=== PATIENT | male | born 1940 | race Caucasian/White ===

== ENCOUNTER 2017-04-12 07:30 | Day surgery (SDC) | payer MEDICARE, BC ==
[~2017-04-12] VITALS: Ht 167.6 cm; Wt 106.6 kg
[~2017-04-12 07:30] MED LIST: ADLT ASA LOW81 MG PO; BREO ELLIPTA 101 INH; CIALIS2.5 MG PO; DIOVAN160 MG PO; FINASTERIDE5 MG PO; GLIMEPIRIDE2 MG PO; MAXZIDE-25MG1 COMBO PO; METFORMIN500 MG PO; MULTIVITAMI1 PO; OMEPRAZOLE20 M2 PO; PRAVACHOL10 MG PO; PRILOSEC40 MG PO; PROCARDIA XL60 MG PO; QUINAPRIL20 MG PO; TYLENOL PM PO
[2017-04-12 10:22] VITALS: BP 166/86
== END 2017-04-12 10:40 | disposition home or self-care (01) ==
LOC: ENDO 07:30
PROVIDERS: ATTEND Internal Medicine Gastroenterology
PROC: 0DBP8ZX Excision of Rectum, Via Natural or Artificial Opening Endoscopic, Diagnostic (ICD-10-PCS; principal; 2017-04-12)
DX: Z12.11 Encounter for screening for malignant neoplasm of colon (principal); D12.8 Benign neoplasm of rectum; K64.4 Residual hemorrhoidal skin tags; K57.30 Diverticulosis of large intestine without perforation or abscess without bleeding; K64.8 Other hemorrhoids; I10 Essential (primary) hypertension; E11.9 Type 2 diabetes mellitus without complications; E78.00 Pure hypercholesterolemia, unspecified; J44.9 Chronic obstructive pulmonary disease, unspecified; Z86.010 Personal history of colon polyps

== ENCOUNTER 2017-05-17 08:10 | Day surgery (SDC) | payer MEDICARE, BC ==
[~2017-05-17] VITALS: Ht 167.6 cm; Wt 83.9 kg
[2017-05-17 10:19] VITALS: BP 108/54
== END 2017-05-17 10:45 | disposition home or self-care (01) ==
LOC: ENDO 08:10 → ORM 09:45 → ENDO 10:45 → ORM 14:10
PROVIDERS: ATTEND Internal Medicine Gastroenterology
PROC: 0DB48ZX Excision of Esophagogastric Junction, Via Natural or Artificial Opening Endoscopic, Diagnostic (ICD-10-PCS; principal; 2017-05-17)
DX: K21.9 Gastro-esophageal reflux disease without esophagitis (principal); K29.50 Unspecified chronic gastritis without bleeding; K31.89 Other diseases of stomach and duodenum; F17.200 Nicotine dependence, unspecified, uncomplicated; K57.30 Diverticulosis of large intestine without perforation or abscess without bleeding; K64.8 Other hemorrhoids; I10 Essential (primary) hypertension; E11.9 Type 2 diabetes mellitus without complications; J44.9 Chronic obstructive pulmonary disease, unspecified; E78.00 Pure hypercholesterolemia, unspecified; Z86.010 Personal history of colon polyps; Z79.899 Other long term (current) drug therapy

== ENCOUNTER 2017-08-22 10:00 | Inpatient (IN) | payer MEDICARE, BC ==
[~2017-08-22] VITALS: Ht 167.6 cm; Wt 83.9 kg
[2017-08-22] MEDS ORDERED: TAMSULOSIN HCL0.4 MG PO (11:40)
[2017-08-26] VITALS (8 sets, daily range): BP systolic 133–155; BP diastolic 55–90
--- NOTE | 2017-08-26 16:16 | NUR ---
PT ARRIVES TO FLOOR WITH OR TEAM, ALERT AND ORIENTED X 3. DRESSING AND ICE PACK TO LEFT SHOULDER. VSS. MEDS GIVEN FOR PAIN RELIEF NEEDED. SLING IN PLACE TO LEFT ARM.
--- NOTE | 2017-08-26 19:30 | NUR ---
PATIENT RESTING IN BED WITH S/O VISITING AT BEDSIDE. PATIENT AWAKE ALERT AND ORIENTEDX3. LEFT ARM IN SLING WITH DRESSING TO LEFT SHOULDER CDI. SOME SWELLING NOTED TO LEFT SHOULDER AREA-USING ICE PACK TO AFFECTED AREA. CMS TO LEFT FINGERS WNL. IV SITE TO RIGHT HAND INTACT WITH IVF LR PATENT AND INFUSING AT 100CC/HR. SITE APPEARS HEALTHY AT THIS TIME. PATIENT TAKING PO FLUIDS AND DIET-TOLERATING WELL. LUNGS CLEAR BUT DECREASED ON LEFT. ABD SOFT WITH BS+. VOIDING QS YELLOW URINE IN URINAL. SCD'S IN PLACE. ENCOURAGED USE OF IS Q1H WHILE AWAKE. ENCOURAGED CDB EXERCISES. SAFETY PRECAUTIONS REINFORCED. CALL LIGHT IN REACH. WILL CONT TO MONITOR.
--- NOTE | 2017-08-26 21:30 | NUR ---
PATIENT RESTING IN BED-MEDICATED FOR POST-OP PAIN TO LEFT SHOULDER WITH PERCOCET 10/325MG TABLETS 2. CALL LIGHT IN REACH. WILL CONT TO MONITOR.
[2017-08-27 00:27] VITALS: BP 176/89
--- NOTE | 2017-08-27 01:55 | NUR ---
PATIENT RESTING IN BED-C/O LEFT SHOULDER POST-OP PAIN-MEDICATED WITH PERCOCET TABS 2 FOR PAIN. PROVIDED WITH ICE PACK TO THE AFFECTED AREA. LEFT ARM REMAINS IN SLING. CMS TO FINGERS WNL. SAFETY PRECAUTIONS REINFORCED. CALL LIGHT IN REACH. WILL CONT TO MONITOR.
--- NOTE | 2017-08-27 04:36 | NUR ---
IV SITE TO RIGHT HAND INFILTRATED-SITE D/C'ED-NEW IV SITE STARTED TO RIGHT FOREARM-#22 GAUGE WITH GOOD BLOOD RETURN. ENCOURAGED PO FLUIDS. CALL LIGHT IN REACH. WILL CONT TO MONITOR.
[2017-08-27 04:46] VITALS: BP 168/72; BP 188/72
[2017-08-27 05:31] LABS: HEMOGLOBIN 12.3 g/dl (14.0-18.0); MEAN CELL VOLUME 94.1 fL CALC (80.0-100.0); MEAN CORPUSCULAR HGB 31.3 pG CALC (26.0-32.0); MEAN CORPUSCULAR HGB CONC 33.2 g/L CALC (32.0-36.0); RED BLOOD COUNT 3.93 mill/uL (4.70-6.10); RED CELL DISTRI WIDTH 12.9 % (11.5-15.5)
[2017-08-27 05:50] LABS: ANION GAP 15 (6-22 (CALC)); BUN 12 mg/dL (8-23); BUN/CREATININE RATIO 15 (12-20 (CALC)); CARBON DIOXIDE 25 mmol/l (22-30); CHLORIDE 105 mmol/l (95-108); CREATININE 0.8 mg/dL (0.7-1.3); GFR > 60 ML/MIN (>=60 (CALC)); GFR FOR AFR.AMER. > 60 ML/MIN (>=60 (CALC)); POTASSIUM 4.4 mmol/l (3.5-5.1); SODIUM 140 mmol/l (137-146)
--- NOTE | 2017-08-27 07:00 | NUR ---
RECEIVED BEDSIDE REPORT FROM KELLY LOZANO. SITTING IN EDGE OF BED. LEFT ARM IN SLING, DRESSING TO LEFT SHOULDER CDI, CMS TO LEFT FINGERS WNL. RESPS EVEN AND UNLABORED ON ROOM AIR. #22 RFA INFUSING WITHOUT DIFFICULTY, SITE APPEARS HEALTHY. SCDS TO BILAT LOWER EXTREMITIES. VOICES NO NEEDS AT THIS TIME. PLAN OF CARE DISCUSSED. SAFETY PRECAUTIONS REINFORCED. BED IN LOWEST POSITION WITH WHEELS LOCKED. CALL LIGHT WITHIN REACH. ENCOURAGED PT TO CALL FOR ANY NEEDS.
[2017-08-27 07:35] VITALS: BP 183/85
[2017-08-27 08:03] VITALS: BP 168/72
--- NOTE | 2017-08-27 12:20 | NUR ---
SITTING IN BEDSIDE CHAIR. LEFT ARM IN SLING, DRESSING TO LEFT SHOULDER CDI. CMS TO LEFT FINGERS WNL. VOICES NO NEEDS AT THIS TIME. DR CURTIS AT BEDSIDE, NEW ORDERS RECEIVED. CALL LIGHT WITHIN REACH. WILL CONTINUE TO MONITOR.
[2017-08-27] MEDS ORDERED: PERCOCET 10/31 COMBO PO (13:13)
--- NOTE | 2017-08-27 14:03 | NUR ---
IV site discontinued, cath intact. No edema , no redness, voices no discomfort.
--- NOTE | 2017-08-27 14:22 | NUR ---
Discharge instructions given. Patient verbalizes understanding of same. Discharged in stable condition via Wheelchair to Home with spouse. All belongings sent with pt.
== END 2017-08-27 14:21 | disposition home health service (06) | DRG 483 ==
LOC: MS2 08-26 05:47
PROVIDERS: Internal Medicine; ADMIT Orthopaedic Surgery; ATTEND Orthopaedic Surgery
PROC: 0RRK00Z Replacement of Left Shoulder Joint with Reverse Ball and Socket Synthetic Substitute, Open Approach (ICD-10-PCS; principal; 2017-08-26)
PROC: 0LS40ZZ Reposition Left Upper Arm Tendon, Open Approach (ICD-10-PCS; 2017-08-26)
DX: M19.012 Primary osteoarthritis, left shoulder (principal); M75.112 Incomplete rotator cuff tear or rupture of left shoulder, not specified as traumatic; S46.212A Strain of muscle, fascia and tendon of other parts of biceps, left arm, initial encounter; E11.9 Type 2 diabetes mellitus without complications; F17.210 Nicotine dependence, cigarettes, uncomplicated; M16.12 Unilateral primary osteoarthritis, left hip; J44.9 Chronic obstructive pulmonary disease, unspecified; E78.5 Hyperlipidemia, unspecified; I10 Essential (primary) hypertension; X58.XXXA Exposure to other specified factors, initial encounter

== ENCOUNTER 2017-08-29 20:35 | Emergency (ER) | payer MEDICARE, BC ==
[~2017-08-29] VITALS: Ht 167.6 cm; Wt 84.1 kg
[~2017-08-29 20:35] MED LIST changes: +PERCOCET 10/31 COMBO PO; +TAMSULOSIN HCL0.4 MG PO
[2017-08-29 21:26] LABS: ALKALINE PHOSPHATASE 56 u/l (38-126); ANION GAP 13 (6-22 (CALC)); BILIRUBIN, TOTAL 0.5 mg/dL (0.0-1.4); BUN 21 mg/dL (8-23); BUN/CREATININE RATIO 27 (12-20 (CALC)); CARBON DIOXIDE 27 mmol/l (22-30); CHLORIDE 106 mmol/l (95-108); CREATININE 0.8 mg/dL (0.7-1.3); GFR > 60 ML/MIN (>=60 (CALC)); GFR FOR AFR.AMER. > 60 ML/MIN (>=60 (CALC)); POTASSIUM 3.9 mmol/l (3.5-5.1); SGOT/AST 19 u/l (19-48); SGPT/ALT 23 u/l (11-66); SODIUM 142 mmol/l (137-146)
[2017-08-29 21:27] LABS: ALBUMIN 3.1 g/dL (3.2-5.0); TOTAL PROTEIN 5.7 g/dL (6.3-8.2)
[2017-08-29 21:42] LABS: HEMATOCRIT 33.8 % (39.0-50.0); HEMOGLOBIN 11.1 g/dl (14.0-18.0); IMMATURE GRANULOCYTES 0.4 % (0.0-5.0); MEAN CELL VOLUME 94.2 fL CALC (80.0-100.0); MEAN CORPUSCULAR HGB 30.9 pG CALC (26.0-32.0); MEAN CORPUSCULAR HGB CONC 32.8 g/L CALC (32.0-36.0); NEUT# 4.16 thou/uL (1.82-7.42); RED BLOOD COUNT 3.59 mill/uL (4.70-6.10)
--- NOTE | 2017-08-29 21:43 | NUR ---
BREATHING TREATMENT GIVEN USING MOUTH PEICE. BREATHING TECH. FOR GOOD DEPOSITION TO THE LUNGS.
[2017-08-29] MEDS ORDERED: DOXYCYCL HYC100 MG PO (22:06)
[2017-08-29] MEDS ORDERED: PREDNISONE10 MG PO (22:06)
[2017-08-29 22:23] VITALS: BP 167/79
== END 2017-08-29 22:40 | disposition home or self-care (01) ==
LOC: ED 20:35
PROVIDERS: Family Medicine
DX: J44.1 Chronic obstructive pulmonary disease with (acute) exacerbation (principal); J20.9 Acute bronchitis, unspecified; J44.0 Chronic obstructive pulmonary disease with (acute) lower respiratory infection; K59.00 Constipation, unspecified; I10 Essential (primary) hypertension; E11.9 Type 2 diabetes mellitus without complications; E78.00 Pure hypercholesterolemia, unspecified

== ENCOUNTER 2017-11-22 14:00 | Outpatient (RCR) | payer MEDICARE, BC ==
[~2017-11-22 14:00] MED LIST changes: +DOXYCYCL HYC100 MG PO; +PREDNISONE10 MG PO
== END 2017-11-22 15:00 | disposition home or self-care (01) ==
LOC: PT 14:00
PROVIDERS: ATTEND Orthopaedic Surgery
DX: Z47.1 Aftercare following joint replacement surgery (principal); Z96.612 Presence of left artificial shoulder joint

== ENCOUNTER 2018-07-30 22:48 | Inpatient (IN) | payer MEDICARE, BC ==
[~2018-07-30] VITALS: Ht 167.6 cm; Wt 88.0 kg
[2018-07-30 23:08] LABS: HEMATOCRIT 38.9 % (39.0-50.0); IMMATURE GRANULOCYTES 0.5 % (0.0-5.0); MEAN CELL VOLUME 92.6 fL CALC (80.0-100.0); MEAN CORPUSCULAR HGB 28.6 pG CALC (26.0-32.0); MEAN CORPUSCULAR HGB CONC 30.8 g/L CALC (32.0-36.0); NEUT# 8.98 thou/uL (1.82-7.42); RED BLOOD COUNT 4.2 mill/uL (4.70-6.10); RED CELL DISTRI WIDTH 14.4 % (11.5-15.5)
[2018-07-30 23:27] LABS: ACT PARTIAL THROMBO TIME 24.7 SECONDS (20.0-32.5); D-DIMER 1.61 mg/L (0.19-0.60); PROTHROMBIN TIME 10.8 SECONDS (9.0-12.5)
[2018-07-30 23:28] LABS: ALKALINE PHOSPHATASE 73 u/l (38-126); ANION GAP 18 (6-22 (CALC)); BILIRUBIN, TOTAL 0.5 mg/dL (0.0-1.4); BUN 22 mg/dL (8-23); BUN/CREATININE RATIO 21 (12-20 (CALC)); CARBON DIOXIDE 25 mmol/l (22-30); CHLORIDE 106 mmol/l (95-108); CREATININE 1.1 mg/dL (0.7-1.3); GFR > 60 ML/MIN (>=60 (CALC)); GFR FOR AFR.AMER. > 60 ML/MIN (>=60 (CALC)); MAGNESIUM 1.5 mg/dL (1.6-2.3); POTASSIUM 4.3 mmol/l (3.5-5.1); SGOT/AST 25 u/l (19-48); SODIUM 145 mmol/l (137-146); TOTAL PROTEIN 6.6 g/dL (6.3-8.2)
[2018-07-30 23:33] LABS: ALBUMIN 3.8 g/dL (3.2-5.0)
[2018-07-30 23:40] LABS: MYOGLOBIN 53 ng/mL (0 - 121)
[2018-07-30 23:59] LABS: TSH, 3RD GENERATION 1.48 uIU/mL (0.47 - 4.68)
[2018-07-31] VITALS (56 sets, daily range): BP systolic 47–181; BP diastolic 35–95
[2018-07-31 07:23] LABS: ANION GAP 19 (6-22 (CALC)); BUN 23 mg/dL (8-23); BUN/CREATININE RATIO 18 (12-20 (CALC)); CARBON DIOXIDE 20 mmol/l (22-30); CHLORIDE 110 mmol/l (95-108); CREATININE 1.3 mg/dL (0.7-1.3); GFR 54 ML/MIN (>=60 (CALC)); GFR FOR AFR.AMER. > 60 ML/MIN (>=60 (CALC)); POTASSIUM 4.5 mmol/l (3.5-5.1); SODIUM 146 mmol/l (137-146)
[2018-07-31 11:35] LABS: HEMATOCRIT 36.4 % (39.0-50.0); HEMOGLOBIN 10.9 g/dl (14.0-18.0); IMMATURE GRANULOCYTES 1.7 % (0.0-5.0); MEAN CELL VOLUME 95.5 fL CALC (80.0-100.0); MEAN CORPUSCULAR HGB 28.6 pG CALC (26.0-32.0); MEAN CORPUSCULAR HGB CONC 29.9 g/L CALC (32.0-36.0); NEUT# 12.26 thou/uL (1.82-7.42); RED BLOOD COUNT 3.81 mill/uL (4.70-6.10); RED CELL DISTRI WIDTH 14.6 % (11.5-15.5)
[2018-08-01] VITALS (29 sets, daily range): BP systolic 84–180; BP diastolic 54–114
[2018-08-01 05:18] LABS: HEMATOCRIT 39.4 % (39.0-50.0); HEMOGLOBIN 11.6 g/dl (14.0-18.0); IMMATURE GRANULOCYTES 2.2 % (0.0-5.0); MEAN CORPUSCULAR HGB 28.6 pG CALC (26.0-32.0); MEAN CORPUSCULAR HGB CONC 29.4 g/L CALC (32.0-36.0); NEUT# 10.79 thou/uL (1.82-7.42); RED BLOOD COUNT 4.06 mill/uL (4.70-6.10); RED CELL DISTRI WIDTH 14.4 % (11.5-15.5)
[2018-08-01 05:35] LABS: ALBUMIN 3.7 g/dL (3.2-5.0); ALKALINE PHOSPHATASE 73 u/l (38-126); AMYLASE 34 u/l (30-110); BUN 31 mg/dL (8-23); BUN/CREATININE RATIO 27 (12-20 (CALC)); CHLORIDE 111 mmol/l (95-108); CREATININE 1.2 mg/dL (0.7-1.3); GFR 59 ML/MIN (>=60 (CALC)); GFR FOR AFR.AMER. > 60 ML/MIN (>=60 (CALC)); LIPASE 18 u/l (23-300); POTASSIUM 4.8 mmol/l (3.5-5.1); SODIUM 147 mmol/l (137-146); TOTAL PROTEIN 6.5 g/dL (6.3-8.2)
[2018-08-01 05:38] LABS: ANION GAP 15 (6-22 (CALC)); BILIRUBIN, TOTAL 0.2 mg/dL (0.0-1.4); CARBON DIOXIDE 26 mmol/l (22-30); MAGNESIUM 2.2 mg/dL (1.6-2.3); SGOT/AST 71 u/l (19-48)
== END 2018-08-01 15:20 | DRG 208 ==
LOC: ED 22:48 → ED-I 07-31 02:00 → ED 07-31 02:25 → ICU 07-31 02:26
PROVIDERS: Family Medicine; Internal Medicine Nephrology; ADMIT Internal Medicine; ATTEND Internal Medicine
PROC: 02HV33Z Insertion of Infusion Device into Superior Vena Cava, Percutaneous Approach (ICD-10-PCS; principal; 2018-07-31)
PROC: 0T9B70Z Drainage of Bladder with Drainage Device, Via Natural or Artificial Opening (ICD-10-PCS; 2018-07-31)
PROC: 5A1935Z Respiratory Ventilation, Less than 24 Consecutive Hours (ICD-10-PCS; 2018-08-01)
PROC: 0BH17EZ Insertion of Endotracheal Airway into Trachea, Via Natural or Artificial Opening (ICD-10-PCS; 2018-08-01)
PROC: 5A09357 Assistance with Respiratory Ventilation, Less than 24 Consecutive Hours, Continuous Positive Airway Pressure (ICD-10-PCS; 2018-08-01)
DX: J44.0 Chronic obstructive pulmonary disease with (acute) lower respiratory infection (principal); J18.9 Pneumonia, unspecified organism; J80 Acute respiratory distress syndrome; I48.92 Unspecified atrial flutter; N17.9 Acute kidney failure, unspecified; E87.2 Acidosis; J44.1 Chronic obstructive pulmonary disease with (acute) exacerbation; I10 Essential (primary) hypertension; I95.9 Hypotension, unspecified; F17.200 Nicotine dependence, unspecified, uncomplicated; E78.5 Hyperlipidemia, unspecified; N40.0 Benign prostatic hyperplasia without lower urinary tract symptoms; M19.90 Unspecified osteoarthritis, unspecified site; K21.9 Gastro-esophageal reflux disease without esophagitis; J84.10 Pulmonary fibrosis, unspecified; I48.0 Paroxysmal atrial fibrillation; G47.33 Obstructive sleep apnea (adult) (pediatric); F51.04 Psychophysiologic insomnia; E11.51 Type 2 diabetes mellitus with diabetic peripheral angiopathy without gangrene; Z91.19 Patient's noncompliance with other medical treatment and regimen; Z96.641 Presence of right artificial hip joint; Z79.84 Long term (current) use of oral hypoglycemic drugs; Z86.011 Personal history of benign neoplasm of the brain
CPT/HCPCS: J1160; J1650; J3475

== ENCOUNTER 2018-08-29 11:03 | Inpatient (IN) | payer MEDICARE, BC ==
[~2018-08-29] VITALS: Ht 167.6 cm; Wt 85.9 kg
[2018-08-29] VITALS (22 sets, daily range): BP systolic 83–152; BP diastolic 39–78
--- NOTE | 2018-08-29 11:16 | NUR ---
PATIENT TO ROOM VIA WHEELCHAIR AND PHYSICIAN AT BEDSIDE FOR EVAL
[2018-08-29 11:37] LABS: HEMATOCRIT 35.4 % (39.0-50.0); HEMOGLOBIN 10.7 g/dl (14.0-18.0); IMMATURE GRANULOCYTES 0.9 % (0.0-5.0); MEAN CELL VOLUME 93.7 fL CALC (80.0-100.0); MEAN CORPUSCULAR HGB 28.3 pG CALC (26.0-32.0); MEAN CORPUSCULAR HGB CONC 30.2 g/L CALC (32.0-36.0); NEUT# 6.78 thou/uL (1.82-7.42); RED BLOOD COUNT 3.78 mill/uL (4.70-6.10); RED CELL DISTRI WIDTH 15.2 % (11.5-15.5)
--- NOTE | 2018-08-29 11:49 | NUR ---
CARDIZEM 20MG IVP GIVEN ORDERED. A-FIB WITH HR OF 142. B/P 147/90. LASIX IV PUSH ALSO GIVEN AT THIS TIME. URINAL PROVIDED.
[2018-08-29 11:56] LABS: ALBUMIN 3.5 g/dL (3.2-5.0); ALKALINE PHOSPHATASE 67 u/l (38-126); ANION GAP 17 (6-22 (CALC)); BUN 19 mg/dL (8-23); BUN/CREATININE RATIO 21 (12-20 (CALC)); CARBON DIOXIDE 30 mmol/l (22-30); CHLORIDE 102 mmol/l (95-108); CREATININE 0.9 mg/dL (0.7-1.3); GFR > 60 ML/MIN (>=60 (CALC)); GFR FOR AFR.AMER. > 60 ML/MIN (>=60 (CALC)); POTASSIUM 4.6 mmol/l (3.5-5.1); SGOT/AST 21 u/l (19-48); SODIUM 144 mmol/l (137-146); TOTAL PROTEIN 6.6 g/dL (6.3-8.2)
[2018-08-29 11:59] LABS: BILIRUBIN, TOTAL 0.4 mg/dL (0.0-1.4)
[2018-08-29 12:08] LABS: MYOGLOBIN 36 ng/mL (0 - 121)
--- NOTE | 2018-08-29 12:19 | NUR ---
PT TO US VIA STRETCHER. NOTIFIED DR IAN LEWIS PUSH WAS GIVEN, HR REMAINS 120'S PT DENIES SHORTNESS OF BREATH. PHARMACY TO BRING CARDIZEM GTT.
[2018-08-29] MEDS ORDERED: AMIODARONE200 MG PO (12:20)
[2018-08-29] MEDS ORDERED: LIPITOR20 M1 PO (12:24)
[2018-08-29] MEDS ORDERED: PLAVIX75 MG PO (12:26)
[2018-08-29] MEDS ORDERED: DILTIAZEM HCL360 M3 (12:29)
[2018-08-29] MEDS ORDERED: LASIX 40 MG TAB40 MG PO (12:31)
[2018-08-29] MEDS ORDERED: METOPROL TAR25 M1 PO (12:33)
[2018-08-29] MEDS ORDERED: POTASSIUM CHLO20 ME2 PO (12:36)
--- NOTE | 2018-08-29 13:16 | NUR ---
PT RETURNED FROM CT/US. SECOND SITE STARTED CARDIZEM GTT INITATED AT 5MG/HR B/P 129/80 HR 118, AFIB. PT REQUESTING LUNCH, TRAY ORDERED.
--- NOTE | 2018-08-29 13:17 | NUR ---
PT VOIDED 450ML OF CLEAR YELLOW URINE.
[2018-08-29 13:38] LABS: URINE BILIRUBIN - DIPSTICK NEGATIVE (NEGATIVE); URINE BLOOD DIPSTICK NEGATIVE (NEGATIVE); URINE COLOR YELLOW; URINE GLUCOSE - DIPSTICK NEGATIVE (NEGATIVE); URINE KETONE NEGATIVE (NEGATIVE); URINE LEUK ESTERASE NEGATIVE (NEGATIVE); URINE NITRITE - DIPSTICK NEGATIVE (Negative); URINE PH 6.5 (4.5-8.0); URINE PROTEIN - DIPSTICK NEGATIVE (NEG-TRACE); URINE SPECIFIC GRAVITY <=1.005; URINE UROBILINOGEN - DIPSTICK 0.2 E.U./dL (0.2)
--- NOTE | 2018-08-29 13:55 | NUR ---
PT WITH ADDITIONAL 450 ML OF CLEAR YELLOW URINE OUT.
--- NOTE | 2018-08-29 14:00 | NUR ---
PT TO XRAY VIA STRETCHER WITH BREAD ICER IN PLACE. ACCOMPANIED BY MYSELF. CARDIZEM GTT INFUSING AT 5MG/HR.
--- NOTE | 2018-08-29 14:17 | NUR ---
PT RETURNED FROM XRAY, UNABLE TO COMPLETE THROACENTESIS R/T TAKING PLAVIX THIS AM.
--- NOTE | 2018-08-29 14:20 | NUR ---
LUNCH TRAY PROVIDED.
--- NOTE | 2018-08-29 14:28 | NUR ---
DR SOSA AT BEDSIDE TO DISCUSS ADMISSION.
--- NOTE | 2018-08-29 14:42 | NUR ---
ED VLADIMIR Varela notified by development writer that Patient met observational status.
--- NOTE | 2018-08-29 15:09 | NUR ---
REPORT GIVEN TO MARTA EDMOND. NO QUESTIONS OFFERED AT THIS TIME.
--- NOTE | 2018-08-29 15:21 | NUR ---
male pt received to ICU bd 4 via stretcher accompanied by Yady Singh RN in stable condition; ambulatory to bed with steady gait; admission assessment completed at this time; pt alert and oriented; denies pain; denies n/v/sob; pt admits to being sent to ER by Dr hernandez; resp even and unlabored; slightly sob on exertion; lungs clear upper anterior with crackles noted to bilat bases; skin color wnl; o2 per nc at 2L; hr irreg; strong pulses; 2+ edema noted to ble; afib on monitor; abd soft with bs present; pt admits to bm 08/29/18; admits to voiding without complication; urinal at bedside; I7Os explained; #22 flushed and patent to rfa; #20 to rh patent with cardizem gtt infusing at 5mg/hr and ns at kvo; stage I noted to inner left lower buttock; pic obtained; plan of care/ meds explained; code status reviewed with pt; pt agree to DNR; pt encouraged to use call light; will continue to monitor
--- NOTE | 2018-08-29 15:37 | NUR ---
PT TRANSPORTED IN STABLE CONDITION TO ICU BED 4, RECEIVING NURSE AT BEDSIDE TO ACCEPT PATIENT.
--- NOTE | 2018-08-29 15:54 | NUR ---
Pharmacy called to consult patient on home medications. Went to speak to patient. Pt states they only want to go over their home medications when their is with him. Pt states that should arrive tomorrow on 08/30/2018 but, does not have an exact time. Told patient to call pharmacy if they have any questions. Pt states no questions but, wants to wait until his is there.
--- NOTE | 2018-08-29 16:05 | NUR ---
awake in bed; fan provided; pharmacy innovation assistant present at bedside; pt wishes to wait for in regards to reviewing home medications; afib on monitor; cardizem gtt continues at 5mg/hr; will continue to monitor
--- NOTE | 2018-08-29 18:57 | NUR ---
BEDSIDE REPORT RECEIVED FROM MARTA EDMOND. PT ASLEEP ON RIGHT SIDE WITH NO SIGNS OF DISTRESS AND OXYGEN IN PLACE VIA NC.
--- NOTE | 2018-08-29 19:06 | NUR ---
BLOOD PRESSURE NOW 83/39 WITH A F/U MANUAL OF 89/55. HEART RATE REMAINS IN THE 100S-120S. PT PLACED IN [place] POSITION AND CARDIZEM DRIP TITRATED FROM 5 TO 2.5MG/HR. PT AWAKENED FROM SLEEP; DROWSY AND ORIENTED. DENIES PAIN. RESPIRATIONS EVEN AND UNLABORED; OXYGEN SATURATIONS 87-89% ON 3L OF OXYGEN VIA NC WHILE ASLEEP.
--- NOTE | 2018-08-29 19:25 | NUR ---
CARDIZEM DRIP DISCONTIUED.
--- NOTE | 2018-08-29 19:35 | NUR ---
DR. DALE NOTIFIED OF BLOOD PRESSURES AND DRIP TITRATION. NEW ORDERS RECEIVED.
--- NOTE | 2018-08-29 19:46 | NUR ---
PT SITTING UP ON EDGE OF BED; ALERT AND ORIENTED. BLOOD PRESSURE UP TO 152/77. RESPIRATIONS EVEN AND UNLABORED; OXYGEN SATURATION NOW 93%. PT UPDATED ON CHANGES IN MEDICATION INCLUDING NEW ORDER FOR XARELTO. QUESTIONS ANSWERED TO SATISFACTION.
--- NOTE | 2018-08-29 20:19 | NUR ---
ALL HS MEDICATIONS ADMINISTERED INCLUIDNG XARELTO, AMIODARONE, CARDIZEM, AND METORPOLOL; VS STABLE; WILL CONTINUE TO CLOSELY MONITOR BLOOD PRESSURE. HEART RATE CURRENTLY 110S-120S. ACCU CHECK 208, 2 UNITS GIVEN AND SNACK PROVIDED. PT HAS NO OTHER REQUESTS OR CONCERNS AT THIS TIME. IV SITES APPEAR HEALTHY.
--- NOTE | 2018-08-29 21:12 | NUR ---
SONATA ADMINISTERED AT THIS TIME PER PT REQUEST.
[2018-08-30] VITALS (37 sets, daily range): BP systolic 76–140; BP diastolic 44–96
--- NOTE | 2018-08-30 00:30 | NUR ---
LAB AT BEDSIDE. ZOSYN INFUSING; IV SITE APPEARS HEALTHY.
--- NOTE | 2018-08-30 02:27 | NUR ---
SBP TEMPORARILY IN THE 70'S. PT PLACED IN [place]; BP CURRENTLY 115/84. WILL CONTINUE TO MONITOR.
--- NOTE | 2018-08-30 04:39 | NUR ---
PT ASLEEP AT THIS TIME WITH NO SIGNS OF DISTRESS. RESPIRATIONS EVEN AND UNLABORED ON OXYGEN; SATURTIONS 90-94% ON 3L. BLOOD PRESSURE REMAINS UNSTABLE; CURRENTLY 87/62. AFIB ON TELEMETRY WITH HEART RATE IN THE 110'S-130'S; PT ASYMPTOMATIC CLINICALLY. PERIODICALLY SITS UP ON SIDE OF THE BED TO USE URINAL. AT THESE TIMES HE IS ALERT AND ORIENTED AND JOKING WITH STAFF. SAFETY MEASURES IN PLACE. CALL LIGHT WITHIN REACH.
--- NOTE | 2018-08-30 06:32 | NUR ---
SITTING UP ON EDGE OF BED DRINKING COFFEE. AM DELORIS COMPLETED.
[2018-08-30 06:36] LABS: HEMATOCRIT 32.7 % (39.0-50.0); HEMOGLOBIN 9.6 g/dl (14.0-18.0); MEAN CELL VOLUME 96.2 fL CALC (80.0-100.0); MEAN CORPUSCULAR HGB 28.2 pG CALC (26.0-32.0); MEAN CORPUSCULAR HGB CONC 29.4 g/L CALC (32.0-36.0); RED BLOOD COUNT 3.4 mill/uL (4.70-6.10); RED CELL DISTRI WIDTH 15.2 % (11.5-15.5)
[2018-08-30 06:44] LABS: ANION GAP 12 (6-22 (CALC)); BUN 20 mg/dL (8-23); BUN/CREATININE RATIO 21 (12-20 (CALC)); CARBON DIOXIDE 35 mmol/l (22-30); CHLORIDE 101 mmol/l (95-108); GFR > 60 ML/MIN (>=60 (CALC)); GFR FOR AFR.AMER. > 60 ML/MIN (>=60 (CALC)); POTASSIUM 4.2 mmol/l (3.5-5.1); SODIUM 144 mmol/l (137-146)
[2018-08-30 06:47] LABS: MAGNESIUM 1.5 mg/dL (1.6-2.3)
--- NOTE | 2018-08-30 07:05 | NUR ---
pt awake sitting on side of bed; no apparent distress noted; pt offers no complaints; assessment completed at [facility] time; pt alert and oriented; denies pain/n/v/sob; resp even and unlabored; lungs clear with crackles in right base; skin color wnl; o2 per nc at 3L; hr irreg; strong pulses; 2+ edema noted to ble; afib 120s on monitor; abd soft/distended with bs present; no bm noted per development writer; voiding clear yellow urine without complication; urinal at bedside; #22 to rfa and #20 to rh, both flushed and patent; no redness or edema noted at site; decub noted to left buttock open to air; plan of care/ meds explained; call light within reach; will continue to monitor
--- NOTE | 2018-08-30 08:03 | NUR ---
awake sitting in side of bed; offers no complaints; deny needs; iv intact; mag infusing without complication; afib on monitor; call light within reach; will continue to monitor
--- NOTE | 2018-08-30 09:19 | NUR ---
bp reassessed and noted at 133/82; senior technical writer spoke with Sudhir Madden NP in regards to fluctuating bp and am meds ( prev 0900 bp 90/52 while lying in bed on right side); orders received to administered one bp med at a time starting with cardizem; plan of care explained to pt; will continue to monitor
--- NOTE | 2018-08-30 09:20 | NUR ---
Sudhir Madden NP present at bedside to assess pt and discuss plan of care
--- NOTE | 2018-08-30 09:57 | NUR ---
Dr Naranjo present at bedside to assess pt and discuss plan of care
--- NOTE | 2018-08-30 10:12 | NUR ---
awake sitting on side of bed; no apparent distress noted; pt offers no complaints; Amiodarone given; Dr Naranjo and Sudhir Madden NP present again at bedside; afib on monitor; iv intact with mag infusing without complications; will continue to monitor
--- NOTE | 2018-08-30 12:10 | NUR ---
pt awake sitting on side of bed; no apparent distress noted; pt offers no complaints; afib on monitor; spouse present at bedside; living will and dnr copied and placed on chart; iv's intact and patent; call light within reach; will continue to monitor
--- NOTE | 2018-08-30 13:00 | NUR ---
specifications writer at bedside to set up for bath and linen change; pt states "I thought we were going to due that while my was here"; declined; will attempt later when is present
--- NOTE | 2018-08-30 14:05 | NUR ---
resting in bed with eyes closed; no apparent distress noted; afib on monitor; o2 per nc; will continue to monitor
--- NOTE | 2018-08-30 15:14 | NUR ---
pt noted sitting in side of bed; pt inquiring about heart rate; heart rate noted to be lower while pt resting; hr ranging 90-110s; will continue to monitor
--- NOTE | 2018-08-30 16:07 | NUR ---
awake sitting in the side of the bed; no distress noted; pt offers no complaints; afib 90s on monitor; iv intact; o2 per nc; pt inquiring about going home tomorrow; call light within reach; will continue to monitor
--- NOTE | 2018-08-30 18:00 | NUR ---
awake sitting on the side of the bed; offers no complaints; no distress noted; iv patent; abt infusing without complication; no redness or edema noted at site; afib on monitor; urinal at bedside; bath offered/ pt wishes to wait for spouse; call light within reach
--- NOTE | 2018-08-30 18:24 | NUR ---
spouse present at bedside; basin set up; pt assisted with bath per spouse
--- NOTE | 2018-08-30 19:00 | NUR ---
PATIENT SITTING ON SIDE OF BED, 3 L/MIN NASAL CANNULA. AT BEDSIDE. PATIENT ALERT AND ORIENTED X4. HEAD TO TOE NURSING ASSESSMENT COMPLETED. DENIES PAIN. RFA 22 G IV INTACT AND FLUSHES PROPERLY SALINE LOCKED, R-H 20 G IV INTACT AND FLUSHES PROPERLY, SALINE LOCKED. EDUCATED ON BEDTIME MEDICATIONS FOR TONIGHT. DISCUSSED POC FOR TONIGHT. CALL LIGHT WITHIN REACH.
--- NOTE | 2018-08-30 19:20 | NUR ---
EXPLAINED TO PATIENT ABOUT BLADDER SCANNING AND THE REASON FOR IT, AT THIS TIME HE REFUSES, REPORTS, "I DON'T NEED IT." I EXPLAINED TO HIM I WILL BE MONITORING URINE OUTPUT THROUGH THE NIGHT AND WILL GO FROM THERE, PATIENT AGREES.
--- NOTE | 2018-08-30 20:00 | NUR ---
PATIENT LYING ON HIS RIGHT SIDE. NO ACUTE DISTRESS SHOWN. ON 3L/MIN NASAL CANNULA. SATS 95%. AFIB ON TELEMETRY. HEART RATE BETWEEN 90'S TO 110 BPM AT REST. NO NEEDS AT THIS TIME. CALL LIGHT WITHIN FREACH.
--- NOTE | 2018-08-30 20:36 | NUR ---
OXYGEN INCREASED TO 4 L/MIN NC, PATIENT SATS 90%-92%. PATIENT DESATS WHEN SLEEPING.
--- NOTE | 2018-08-30 22:06 | NUR ---
PATIENT SITTING ON SIDE OF BED. ASSISTED TO LAY ON HIS RIGHT SIDE. ON 4L/MIN NC, MAINTAINS 93%-94%. NO ACUTE DISTRESS NOTED. VOIDS IN URINAL, URINE IS YELLOW AND CLEAR. CALL LIGHT WITHIN REACH.
[2018-08-31] VITALS (14 sets, daily range): BP systolic 91–135; BP diastolic 50–93
--- NOTE | 2018-08-31 | NUR ---
PATIENT LYING ON HIS RIGHT SIDE, IS AWAKE AND ALERT. ON 4L/MIN NC, NO SOB NOYED. NO ACUTE DISTRESS NOTED. SATS 95 %. NO NEEDS AT THIS TIME. CALL LIGHT WITHIN REACH.
--- NOTE | 2018-08-31 00:45 | NUR ---
PATIENT REQUESTS VANILLA PUDDING AND APPLESAUCE TO SNACK ON, BOTH TAKEN TO HIM AND HE IS NOW SITTING ON SIDE OF BED EATING, IN NO ACUTE DISTRESS. CALL LIGHT WITHIN REACH.
--- NOTE | 2018-08-31 02:00 | NUR ---
PATIENT RESTING WITH EYES CLOSED, ON 3L/MIN NC, SATS 95 %. NO ACUTE DISTRESS SHOWN. CALL LIGHT WITHIN REACH.
--- NOTE | 2018-08-31 04:15 | NUR ---
PATIENT HAS BEEN SITTING UP ON THE SIDE OF THE BED, ON 4L/MIN NC. NO SOB NOTED. NO ACUTE DISTRESS NOTED. NEW ICED CLEAN WATER TAKEN PER REQUEST. CALL LIGHT WITHIN REACH.
[2018-08-31 05:23] LABS: HEMATOCRIT 34.9 % (39.0-50.0); HEMOGLOBIN 10.3 g/dl (14.0-18.0); IMMATURE GRANULOCYTES 0.7 % (0.0-5.0); MEAN CELL VOLUME 96.7 fL CALC (80.0-100.0); MEAN CORPUSCULAR HGB 28.5 pG CALC (26.0-32.0); MEAN CORPUSCULAR HGB CONC 29.5 g/L CALC (32.0-36.0); NEUT# 6.6 thou/uL (1.82-7.42); RED BLOOD COUNT 3.61 mill/uL (4.70-6.10); RED CELL DISTRI WIDTH 14.7 % (11.5-15.5)
[2018-08-31 06:02] LABS: ANION GAP 11 (6-22 (CALC)); BUN 18 mg/dL (8-23); BUN/CREATININE RATIO 18 (12-20 (CALC)); CARBON DIOXIDE 33 mmol/l (22-30); CHLORIDE 101 mmol/l (95-108); GFR > 60 ML/MIN (>=60 (CALC)); GFR FOR AFR.AMER. > 60 ML/MIN (>=60 (CALC)); POTASSIUM 4.3 mmol/l (3.5-5.1); SODIUM 142 mmol/l (137-146)
--- NOTE | 2018-08-31 06:15 | NUR ---
PATIENT REQUESTS A CUP OF COFFEE. IS NOW SITTING ON THE SIDE OF THE BED. SOB NOTED WITH EXERTION. ON 3L/MIN NC, SATS 95%. NO OTHER NEEDS AT THIS TIME. CALL LIGHT WITHIN REACH.
--- NOTE | 2018-08-31 06:18 | NUR ---
PATIENT'S TOTAL URINE PUTPUT FOR TONIGHT IS 475, I ASKED THE PATIENT AGAIN IF I OULD BLADDER SCAN HIM, HE REFUSES AGAIN AT THE MOMENT. HE DID ALLOW ME TO PALPATE ON BLADDER AREA, IT IS SOFT, NO PAIN UPON PALPATION. STOMACH IS DISTENDED, PATIENT REPORTS HE HAS 3 HERNIAS.
--- NOTE | 2018-08-31 07:21 | NUR ---
pt awake sitting on the side of the bed; no apparent distress noted; pt appears anxious; states "I'm tensed"; pt admits to not sleeping well and express wishes to go home; pt denies pain; no n/v/sob noted; resp even and unlabored; lungs clear/ crackles bases; skin color wnl; o2 per nc at 4L; o2 sat 93%; hr irreg; storng pulses; 2+ edema noted to ble; feet elevation encouraged; afib on monitor; abd soft/distended with bs present; no bm noted per writer producer; pt voiding without complication; no urine to inspect at this time; #20 to rh/ #22 to rfa flushed and patent; no redness or edema noted at site; plan of care/ am meds explained; call light within reach; will continue to monitor
--- NOTE | 2018-08-31 08:02 | NUR ---
pt awake in bed; no apparent distress noted; pt offers no complaints; iv's intact; no redness or edema noted; pt converted to room air; fiction writer to monitor o2 saturation closely; afib on monitor; call light within reach; will continue to monitor
--- NOTE | 2018-08-31 08:22 | NUR ---
pt resting in bed with eyes closed; pt desats while asleep; o2 noted as low as 76%; o2 reapplied at 4L with immed increase in o2 saturation to 94%; afib 110-130s on monitor; will continue to monitor
--- NOTE | 2018-08-31 09:32 | NUR ---
Sudhir Madden NP present at bedside to assess pt and discuss plan of care
--- NOTE | 2018-08-31 10:00 | NUR ---
awake in bed; RT at bedside to speak to pt in regards to o2 sat; sat current 86%-87% on room air; o2 to be reapplied; will continue to monitor
--- NOTE | 2018-08-31 10:15 | NUR ---
awake sitting on the side of bed; Dr Naranjo present at bedside to assess pt and discuss plan of care; afib 120s on monitor; o2 per nc at 3L; pt updated in plan of care; will continue to monitor
--- NOTE | 2018-08-31 12:15 | NUR ---
resting in bed with eyes closed; easily aroused; offers no complaints; iv flushed and patent; abt infusing without complication; afib on monitor; o2 per nc; call light within reach; will continue to monitor
[2018-08-31 12:46] LABS: CHOLESTEROL HDL RATIO 3.3 (<4.4 (CALC))
--- NOTE | 2018-08-31 14:00 | NUR ---
pt resting with eyes closed; no apparent distress note;d easily aroused; offers no complaints; afib 90s on monitor; o2 per nc; call light within reach; will continue to monitor
--- NOTE | 2018-08-31 16:01 | NUR ---
awake in bed; no apparent distress noted; pt offers no complaints; spouse present at bedside; afib on monitor; o2 per nc; will continue to monitor
--- NOTE | 2018-08-31 17:57 | NUR ---
awake sitting on side of bed; no distress noted; pt offers no complaints; denies needs; afib on monitor; iv intact and patent with abt infusing without complicaiton; no redness or edema noted at site; IS at bedside; call light within reach
--- NOTE | 2018-08-31 19:00 | NUR ---
PATIENT IS LIES ON HIS RIGHT SIDE, AWAKENS WHEN I WALK IN ROOM. IS ALERT AND ORIENTED X4. SATS 84 % ON 3 L/MIN. NO SOB NOTED AT THIS TIME. NO ACUTE DISTRESS NOTED AT THIS TIME. HEAD TO TOE NURSE ASSESSMENT COMPLETED. RFA 22 G IV INTATC AND FLSUHES PROPERLY, SALINE LOCKED. NO COMPLAINTS OF PAIN. NO NEEDS AT THIS TIME. DISCUSSED POC FOR TONIGHT. DISCUSSED MEDICATIONS FOR BEDTIME. DISCUSSED ABOUT USE OF INCENTIVE SPIROMETER. AFEBRILE, AFIB WITH HEART RATE BETWEEN 90'S-110'S. CALL LIGHT WITHIN REACH. WILL CONTINUE TO MONITOR.
--- NOTE | 2018-08-31 19:31 | NUR ---
PATIENT DESATS INTO 80'S WHEN SLEEPING, INCREASED O2 TO 4L/MIN AND ENCOURAGED PATIENT TO PERFORM PURSE LIPPED BREATHING TECHNIQUE, NOW SATS 93%.
--- NOTE | 2018-08-31 20:01 | NUR ---
PATIENT SLEEPING. NO ACUTE DISTRESS SHOWN. LAYING ON HIS RIGHT SIDE. NO NEEDS AT THIS TIME. CALL LIGHT WITHIN REACH.
--- NOTE | 2018-08-31 20:14 | NUR ---
PATIENT SITTING ON SIDE OF THE BED, USES URINAL. URINE IS YELLOW AND CLEAR. SOME SOB WITH EXERTION NOTED, SATS 93% ON 4L/MIN NC. CALL LIGHT WITHIN REACH.
--- NOTE | 2018-08-31 22:04 | NUR ---
PATIENT SITTING UP ON SIDE OF BED, ON 4L/MIN NC, SATS 94%, NONPRODUCTIVE COUGH NOTED. NO NEEDS AT THIS TIME. CALL LIGHT WITHIN REACH.
--- NOTE | 2018-08-31 23:59 | NUR ---
PATIENT LYING ON HIS RIGHT SIDE, IS AWAKE. ON 4L/MIN NC. HAS A NONPRODUCTIVE COUGH. NO COMPLAINTS OF PAIN, NO NEEDS AT THIS TIME. CALL LIGHT WITHIN REACH.
[2018-09-01] VITALS (13 sets, daily range): BP systolic 82–135; BP diastolic 53–85
--- NOTE | 2018-09-01 02:01 | NUR ---
PATIENT IS SITTING AT SIDE OF THE BED, TV IS ON. NO ACUTE DISTRESS SHOWN. NO NEEDS AT THIS TIME. CALL LIGHT WITHIN REACH.
--- NOTE | 2018-09-01 04:29 | NUR ---
PATIEMT SLEEPING, LAYING ON HIS RIGHT SIDE. EASILY AROUSES WHEN SPOKEN TO. ON NC 4L/MIN, SATS 94%. NO ACUTE DISTRESS SHOWN. CALL LIGHT WITHIN REACH.
[2018-09-01 05:07] LABS: HEMATOCRIT 33.8 % (39.0-50.0); IMMATURE GRANULOCYTES 0.9 % (0.0-5.0); MEAN CORPUSCULAR HGB 28.4 pG CALC (26.0-32.0); MEAN CORPUSCULAR HGB CONC 29.6 g/L CALC (32.0-36.0); NEUT# 5.81 thou/uL (1.82-7.42); RED BLOOD COUNT 3.52 mill/uL (4.70-6.10); RED CELL DISTRI WIDTH 14.6 % (11.5-15.5)
[2018-09-01 05:33] LABS: ANION GAP 12 (6-22 (CALC)); BUN 17 mg/dL (8-23); BUN/CREATININE RATIO 16 (12-20 (CALC)); CARBON DIOXIDE 37 mmol/l (22-30); CHLORIDE 97 mmol/l (95-108); CREATININE 1.1 mg/dL (0.7-1.3); GFR > 60 ML/MIN (>=60 (CALC)); GFR FOR AFR.AMER. > 60 ML/MIN (>=60 (CALC)); POTASSIUM 3.9 mmol/l (3.5-5.1); SODIUM 142 mmol/l (137-146)
--- NOTE | 2018-09-01 05:58 | NUR ---
PATIENT AWAKE, ABLE TO STAND ON STANDING SCALE. ABLE TO TRANSFER TO WHEELCHAIR WITH OXYGEN, STEADY GAIT. WILL BE TAKEN TO GET CHEST XRAY.
--- NOTE | 2018-09-01 06:17 | NUR ---
PATIENT BROUGHT BACK FROM [facility]. REPORTS NO PAIN. NO ACUTE DISTRESS NOTED. SAFELY TRANSFERRED BACK TO BED. NO NEEDS AT THIS TIME. ON 4L/MIN NC. CALL LIGHT WITHIN REACH.
--- NOTE | 2018-09-01 07:02 | NUR ---
DR NEGRETE NOTIFIED OF CARDIOLOGY CONSULT BUT [place] AT [place] TIME.
--- NOTE | 2018-09-01 07:23 | NUR ---
PT SITTING ON SIDE OF BED, A&Ox4. SPEECH CLEAR. BREATHING EVEN/UNLABORED, LUNGS CTA EXCEPT LLL CRACKLES. ON 4L NC. AFIB ON TELE IN 110'S. 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 STAGE 1 PRESSURE ULCER TO LEFT BUTTOCK OPEN TO AIR. ACTIVE BS. PULSES STRONG x4. +1 EDEMA TO BILATERAL LOWER LEGS. STATES HE HAD A CPAP AT HOME BUT DOESNT LIKE IT. PT APPEARS HAPPY BUT STATES HE IS READY TO GO HOME. DENIES PAIN. DENIES N/V/D. LAST BM 08/29, PASSING GAS.
--- NOTE | 2018-09-01 07:31 | NUR ---
PT SITTING UP ON SIDE OF BED, EATING BREAKFAST. GIVEN CAN OF SODA, PER REQUEST.
--- NOTE | 2018-09-01 07:59 | NUR ---
PT UP TO TOILET FOR BM.
--- NOTE | 2018-09-01 08:26 | NUR ---
DR CURTIS @BEDSIDE ASSESSING PT, DISCUSSING POC.
--- NOTE | 2018-09-01 08:57 | NUR ---
PT REQUESTED TO TAKE O2 OFF FOR AWHILE. 02 DROPPED & SUSTAINED AT 88% PT ASKED TO WEAR NC.
--- NOTE | 2018-09-01 09:00 | NUR ---
CALLED PHARMACY TO CHECK ON DM MEDS RESTARTING AFTER CTA.
--- NOTE | 2018-09-01 09:19 | NUR ---
PT TUCKED INTO BED TO "REST". TELE LEADS CHANGED. CALLBELL W/IN REACH. NO OTHER NEEDS/CONCERNS AT THIS TIME.
--- NOTE | 2018-09-01 10:00 | NUR ---
PT REFUSING BATH. PARTIAL LINEN CHANGE COMPLETED.
--- NOTE | 2018-09-01 10:43 | NUR ---
PT SITTING UP ON SIDE OF BED. NUTRITION @BESIDE.
--- NOTE | 2018-09-01 11:00 | NUR ---
CM WILL COME OVER TO TALK TO PT ABOUT HOME O2
--- NOTE | 2018-09-01 11:20 | NUR ---
VISITOR @BEDSIDE. PT MEDICATED ACCORDING TO EMAR. PT TALKATIVE WITH STAFF, "GETTING BORED".
--- NOTE | 2018-09-01 11:32 | NUR ---
PT SITTING UP ON SIDE OF BED, EATING LUNCH. VISITOR LEFT.
--- NOTE | 2018-09-01 12:44 | NUR ---
PT LAYING IN BED SLEEPING/SNORING. NO S/S OF DISTRESS. WILL CONTINUE TO MONITOR.
--- NOTE | 2018-09-01 13:26 | NUR ---
AMADOU MENDOZA, @BEDSIDE TO DISCUSS HOME O2 OPTIONS.
--- NOTE | 2018-09-01 14:14 | NUR ---
DR CURTIS @BEDSIDE WITH PT. RT WILL REPEAT HOME O2 EVALUATION TOMORROW.
--- NOTE | 2018-09-01 15:52 | NUR ---
PT SITTING ON SIDE OF BED, JOKING WITH STAFF. STATES SHOULD BE HERE SOON.
--- NOTE | 2018-09-01 16:03 | NUR ---
@BEDSIDE. PT & CONVERSING FREELY. NO S/S OF DISTRESS
--- NOTE | 2018-09-01 17:38 | NUR ---
PT SITTING UP ON SIDE OF BED, EATING DINNER. @BEDSIDE.
--- NOTE | 2018-09-01 18:26 | NUR ---
PT LAYING IN BED RESTING. JOKING/PLAYFUL WITH STAFF. CALLBELL W/IN REACH
--- NOTE | 2018-09-01 19:10 | NUR ---
PT. SITTING UP IN BED WITH NO DISTRESS NOTED; O2 TITRATED DOWN TO 3LITERS/MIN PER NC FROM 4LITERS/MIN. SPO2 94%; WILL CONTINUE TO MONITOR. ASSESSMENT COMPLETED; IV SITE PATENT AND SL. HR 100 AT THIS TIME. PHOTO OBTAINED OF BUTTOKS AND PLACED IN CHART. URINAL EMPTIED OF 250MLS OF CLEAR YELLOW URINE; UPDATED ON POC. CALL LIGHT IS IN REACH. WILL CONTINUE TO MONITOR.
--- NOTE | 2018-09-01 20:15 | NUR ---
ACCUCHECK 273, MEDICATED PER SLIDING SCALE AND ALONG WITH SCHED PM MEDS; SNACK PROVIDED; URINAL EMPTIED; VOICES NO CONCERNS; CALL LIGHT IS IN REACH. WILL CONTINUE TO MONITOR.
--- NOTE | 2018-09-01 22:30 | NUR ---
PT. RESTING IN BED ON RIGHT SIDE WITH EYES CLOSED; O2 TITRATED DOWN TO 2 LITERS AND PT. SPO2 DOWN TO 88-89% ; INCREASED TO 3LITERS/MIN VIA NC. CALL LIGHT IS IN REACH.
--- NOTE | 2018-09-01 23:45 | NUR ---
IV SITE LEAKIN TO RFA, REMOVED AND CATHETER TIP INTACT. NEW IV STARTED TO RWRIST X1 ATTEMPT #22 GAUGE. PT. TOLERATED WELL. DENIES NEEDS. VOICES NO CONCERNS. CALL LIGHT IS IN REACH. WILL CONTINUE TO MONITOR.
[2018-09-02] VITALS (8 sets, daily range): BP systolic 100–133; BP diastolic 53–74
--- NOTE | 2018-09-02 02:00 | NUR ---
PT. ASSISTED TO THE BATHROOM AND HAD A BM; VOICES NO CONCERNS. O2 3.5LITERS/MIN PER NC RE-APPLIED. CALL LIGHT IS IN REACH. WILL CONTINUE TO MONITOR.
--- NOTE | 2018-09-02 04:35 | NUR ---
PT. SITTING UP ON THE SIDE OF THE BED; NO DISTRESS NOTED; DENIES NEEDS. CALL LIGHT AND URINAL IN REACH.
[2018-09-02 05:49] LABS: BUN 16 mg/dL (8-23); BUN/CREATININE RATIO 16 (12-20 (CALC)); CHLORIDE 92 mmol/l (95-108); GFR > 60 ML/MIN (>=60 (CALC)); GFR FOR AFR.AMER. > 60 ML/MIN (>=60 (CALC)); MAGNESIUM 1.8 mg/dL (1.6-2.3); POTASSIUM 4.1 mmol/l (3.5-5.1); SODIUM 141 mmol/l (137-146)
[2018-09-02 05:57] LABS: ANION GAP 12 (6-22 (CALC))
[2018-09-02 06:37] LABS: CARBON DIOXIDE 41 mmol/l (22-30)
--- NOTE | 2018-09-02 06:49 | NUR ---
REPORT RECVD FROM MARTA MADRIGAL @START OF SHIFT.
--- NOTE | 2018-09-02 07:30 | NUR ---
PT SITTING UP IN BED, EATING BREAKFAST. DENIES PAIN. DENIES N/V
--- NOTE | 2018-09-02 08:08 | NUR ---
PT LAYING DOWN, RESTING, IN BED. NO S/S OF DISTRESS AT THIS TIME. WILL CONTINUE TO MONITOR.
[2018-09-02] MEDS ORDERED: XARELTO10 MG PO (08:40)
[2018-09-02] MEDS ORDERED: DOXYCYCL HYC100 MG PO (08:40)
[2018-09-02] MEDS ORDERED: SPIRONOLACT25 MG PO (08:40)
--- NOTE | 2018-09-02 08:40 | NUR ---
DR CURTIS @BEDSIDE WITH PT, ASSESSING & DISCUSSING POC. DC TODAY WITH NEW MED & HOME O2.
[2018-09-02] MEDS ORDERED: XARELTO20 MG PO (08:52)
--- NOTE | 2018-09-02 09:20 | NUR ---
LOPRESSOR HELD UNTIL 1000, BP MEDS STAGGERED. MAG IV RUNNING.
--- NOTE | 2018-09-02 10:03 | NUR ---
PT TO NURSES STATION FOR PT UPDATE. WENT HOME FOR CLEAN CLOTHES FOR PT BUT WILL BE BACK.
--- NOTE | 2018-09-02 10:46 | NUR ---
AMADOU MENDOZA, @BEDSIDE WITH PT DISCUSSING HOME 02.
--- NOTE | 2018-09-02 11:36 | NUR ---
PT/ EDUCATED ON DC INSTRUCTIONS. INCLUDING NEW RX & DC MEDS. OUTLINED TIMES FOR ALL MEDICATIONS AND WHEN TO TAKE NEXT DOSES AT HOME. PT STATES DR MIRANDA WANTS TO SEE HIM IN DAYS & WILL MAKE F/UP APPTMENT WITH DR NEGRETE. DC PENDING HOME O2 FROM [facility]. PT CURRENTLY SITTING ON SIDE OF BED, EATING LUNCH.
--- NOTE | 2018-09-02 13:47 | NUR ---
AMADOU MENDOZA, @BEDSIDE DISCUSSING HOME 02 WITH PT/.
--- NOTE | 2018-09-02 15:00 | NUR ---
DC'D PTS IV, TIP INTACT, DRESSING APPLIED.
--- NOTE | 2018-09-02 15:52 | NUR ---
PORTER @BEDSIDE EDUCATING PT/ ON O2 TANK. HE WILL WAIT DOWNSTAIRS FOR THEM TO SET UP HOME O2.
--- NOTE | 2018-09-02 15:57 | NUR ---
PT OUT THE DOOR WITH AUX BY WC WITH O2 IN STABLE CONDITION.
== END 2018-09-02 15:57 | DRG 193 ==
LOC: ED 11:03 → ED-I 14:33 → ED 14:49 → ICU 14:50
PROVIDERS: Emergency Medicine; Nurse Practitioner Family; ADMIT Internal Medicine; ATTEND Internal Medicine
DX: J18.9 Pneumonia, unspecified organism (principal); J96.21 Acute and chronic respiratory failure with hypoxia; I50.30 Unspecified diastolic (congestive) heart failure; I48.91 Unspecified atrial fibrillation; I11.0 Hypertensive heart disease with heart failure; J43.9 Emphysema, unspecified; I25.10 Atherosclerotic heart disease of native coronary artery without angina pectoris; E11.9 Type 2 diabetes mellitus without complications; E78.5 Hyperlipidemia, unspecified; K21.9 Gastro-esophageal reflux disease without esophagitis; M19.90 Unspecified osteoarthritis, unspecified site; T45.516A Underdosing of anticoagulants, initial encounter; I95.2 Hypotension due to drugs; T46.1X5A Adverse effect of calcium-channel blockers, initial encounter; E83.42 Hypomagnesemia; N40.0 Benign prostatic hyperplasia without lower urinary tract symptoms; D63.8 Anemia in other chronic diseases classified elsewhere; F17.200 Nicotine dependence, unspecified, uncomplicated; Z79.84 Long term (current) use of oral hypoglycemic drugs; Z91.128 Patient's intentional underdosing of medication regimen for other reason; Z95.5 Presence of coronary angioplasty implant and graft; Z79.02 Long term (current) use of antithrombotics/antiplatelets
CPT/HCPCS: J3475; Q9967

== ENCOUNTER 2018-09-11 08:36 | Inpatient (IN) | payer MEDICARE, BC ==
[~2018-09-11] VITALS: Ht 167.6 cm; Wt 90.3 kg
[2018-09-11] VITALS (9 sets, daily range): BP systolic 116–138; BP diastolic 66–76
[~2018-09-11 08:36] MED LIST changes: +AMIODARONE200 MG PO; +DILTIAZEM HCL360 M3 PO; +LASIX 40 MG TAB40 MG PO; +LIPITOR20 M1 PO; +METOPROL TAR25 M1 PO; +PLAVIX75 MG PO; +POTASSIUM CHLO20 ME2 PO; +SPIRONOLACT25 MG PO; +XARELTO10 MG PO; +XARELTO20 MG PO
--- NOTE | 2018-09-11 08:36 | NUR ---
PT ARRIVED VIA EMS ON 100% NRB MASK, O2 SAT 92%. PT DENIES SOB ORDYSPNEA. CHANGED TO O2@2LPM VIA NC TO MONITOR. PT ADAMENTLY REFUSING BIPAP AT THIS TIME.
--- NOTE | 2018-09-11 08:52 | NUR ---
MD AT BEDSIDE TO DISCUSS NEED FOR BIPAP AND QUESITONS ANSWERED. PT AGREEABLE TO BIPAP BUT STATES "I DONT WANT ANY EXTREME MEASURES TAKNE , I DONT WANT TO BE RESUSCITATED". PT STATES "MY HAS THE FORMS"
--- NOTE | 2018-09-11 09:00 | NUR ---
INITIATED NITRO GTT AT 50MCG/MIN ORDERED PER MD. ON NEB TX AT THIS TIME O2 AT 88% ON O2@2LPM VIA NC. SKIN PWD
[2018-09-11 09:26] LABS: HEMATOCRIT 34.5 % (39.0-50.0); HEMOGLOBIN 9.8 g/dl (14.0-18.0); IMMATURE GRANULOCYTES 0.8 % (0.0-5.0); MEAN CORPUSCULAR HGB 28.4 pG CALC (26.0-32.0); MEAN CORPUSCULAR HGB CONC 28.4 g/L CALC (32.0-36.0); NEUT# 14.77 thou/uL (1.82-7.42); RED BLOOD COUNT 3.45 mill/uL (4.70-6.10)
[2018-09-11 09:53] LABS: BUN 27 mg/dL (8-23); BUN/CREATININE RATIO 27 (12-20 (CALC)); CHLORIDE 95 mmol/l (95-108); GFR > 60 ML/MIN (>=60 (CALC)); GFR FOR AFR.AMER. > 60 ML/MIN (>=60 (CALC)); SODIUM 142 mmol/l (137-146)
--- NOTE | 2018-09-11 10:00 | NUR ---
REPOR RECIEVED FROM LENA LOZANO
[2018-09-11 10:01] LABS: ANION GAP 7 (6-22 (CALC)); CARBON DIOXIDE 45 mmol/l (22-30); POTASSIUM 5.1 mmol/l (3.5-5.1)
[2018-09-11] MEDS ORDERED: FINASTERIDE5 MG PO (10:03)
[2018-09-11] MEDS ORDERED: PROAIR HFA108 MCG/AC PO (10:05)
[2018-09-11] MEDS ORDERED: ELIQUIS5 MG PO ×2 (10:05→14:00)
[2018-09-11] MEDS ORDERED: DIGOXIN0.125 MG PO (10:06)
[2018-09-11] MEDS ORDERED: XARELTO10 MG PO (10:07)
[2018-09-11] MEDS ORDERED: FAMOTIDINE20 M1 PO (10:08)
--- NOTE | 2018-09-11 10:25 | NUR ---
SBAR PRINTED TO FLOOR
--- NOTE | 2018-09-11 10:57 | NUR ---
PT MAINTAINING ON BIPAP. NITRO D.C'ED PER DR LU. IV PATENT WITH ANTIBIOTICS RUNNING.
--- NOTE | 2018-09-11 11:17 | NUR ---
SEPSIS SALINE BOLUS WITH HELD DUE TO ELEVATED LABS
--- NOTE | 2018-09-11 11:25 | NUR ---
REPORT CALLED TO ICU, TANVIR LOZANO ACCEPTED PT. WILL HOLD PT IN ER TILL 1140 FOR ICU
--- NOTE | 2018-09-11 11:35 | NUR ---
Admission Note Report Given to: TANVIR RN Transported by: X Wheelchair Stretcher Transported with: X Nurse X Transporter X Patent IV X O2 X Tar Heater TRANSPORTED TO ICU WITHOUT INCIDENT, RT BROUGHT BIPAP MACHINE
--- NOTE | 2018-09-11 11:35 | NUR ---
PT TO ICU BED 3 VIA STRETCHER ACCOMPNIED BY ER NURSE AND RT. PT IS ALERT AND ORIENTED X3. ADMISSION ASSESSMENT COMPLETED AT THIS TIME. IV PATENT X1. ORIENTED TO ROOM AND UNIT. CALL LIGHT IN REACH. WILL CONTINUE TO MONITOR.
--- NOTE | 2018-09-11 11:55 | NUR ---
16FR HAMMOND PLACED USING STERILE TECHNIQUE. IMMEADIATE RETURN OF URINE. PT TOLERATED WELL.
--- NOTE | 2018-09-11 12:00 | NUR ---
DR CURTIS AT BEDSIDE AT THIS TIME TO DISCUSS PLAN OF CARE.
--- NOTE | 2018-09-11 12:15 | NUR ---
LAB AT BEDSIDE AT THIS TIME TO DRAW LABS
--- NOTE | 2018-09-11 12:45 | NUR ---
PT DISTRIBUTION FIELD ENGINEER LIGHT REPORTS THAT HAMMOND IS LEAKING. 16 FR HAMMOND REMOVED. 18 FR HAMMOND REPLACED USING STERILE TECHNIQUE. IMMEADIATE RETURN OF URINE. PT TOLERATED WELL.
--- NOTE | 2018-09-11 12:51 | NUR ---
HARJINDER STANDBY. PT ON 3L MT.
[2018-09-11 12:57] LABS: URINE BILIRUBIN - DIPSTICK NEGATIVE (NEGATIVE); URINE BLOOD DIPSTICK NEGATIVE (NEGATIVE); URINE COLOR YELLOW; URINE GLUCOSE - DIPSTICK 500 mg/dL (NEGATIVE); URINE KETONE NEGATIVE (NEGATIVE); URINE LEUK ESTERASE NEGATIVE (NEGATIVE); URINE NITRITE - DIPSTICK NEGATIVE (Negative); URINE PROTEIN - DIPSTICK TRACE mg/dL (NEG-TRACE); URINE SPECIFIC GRAVITY >=1.030; URINE UROBILINOGEN - DIPSTICK 0.2 E.U./dL (0.2)
--- NOTE | 2018-09-11 13:00 | NUR ---
PT PLACED ON BEDPAN FOR BM AND REMOVED CLEANSED PT POST BM. PT TOLERATED WELL.
--- NOTE | 2018-09-11 13:05 | NUR ---
DR CURTIS NOTIFIED OF MONITOR READING SB 47.
--- NOTE | 2018-09-11 13:10 | NUR ---
PT PLACED ON BIPAP
--- NOTE | 2018-09-11 14:01 | NUR ---
DR GILBERT OFFICE CALLED TO INFORM ICU STAFF OF TRANSFER OF PT TO [facility]. ORDER PLACED IN CHART.
[2018-09-11] MEDS ORDERED: METOPROL TAR25 MG PO (14:02)
--- NOTE | 2018-09-11 14:10 | NUR ---
KERRY FROM [facility] SPOKE WITH MARTA RAMEY FOR PT INFO. FACESHEET FAXED TO [facility] @ [phone]. RADIOLOGY CD REQUESTED.
--- NOTE | 2018-09-11 14:15 | NUR ---
CONSENT OBTAINED FROM FOR TRANSFER TO [facility].
--- NOTE | 2018-09-11 16:01 | NUR ---
PT RESTING IN BED WATCHING TV. SPOUSE AT BEDSIDE. PT REMAINS ON BIPAP AT THIS TIME. AWAITING [facility] ASS[facility] AT [facility]. CALL LIGHT IN REACH. WILL CONTINUE TO MONITOR.
--- NOTE | 2018-09-11 16:50 | NUR ---
[facility] CALLED WITH BED ASSIGNMENT. PHONED [facility] FOR TRANSPORT.
--- NOTE | 2018-09-11 17:18 | NUR ---
[facility] ARRIVED. REPORT PROVIDED.
--- NOTE | 2018-09-11 17:33 | NUR ---
REPORTS CALLED TO TANVIR AT [facility]. REPORT PROVIDED TO GABY LOZANO WHO IS RIDING WITH PATIENT FOR BIPAP. PT OFF UNIT VIA STETCHER ACCOMPANIED BY DAVIN. ALL BELONGINGS SENT WITH PATIENT. ROOM NUMBER PROVIDED TO .
== END 2018-09-11 17:33 | disposition short-term general hospital (02) | DRG 291 ==
LOC: ED 08:36 → ED-I 10:15 → ED 10:30 → ICU 10:31
PROVIDERS: Family Medicine; ADMIT Internal Medicine; ATTEND Internal Medicine
PROC: 5A09357 Assistance with Respiratory Ventilation, Less than 24 Consecutive Hours, Continuous Positive Airway Pressure (ICD-10-PCS; principal; 2018-09-11)
PROC: 0T9B70Z Drainage of Bladder with Drainage Device, Via Natural or Artificial Opening (ICD-10-PCS; 2018-09-11)
DX: I11.0 Hypertensive heart disease with heart failure (principal); J96.22 Acute and chronic respiratory failure with hypercapnia; J96.21 Acute and chronic respiratory failure with hypoxia; J43.9 Emphysema, unspecified; I50.9 Heart failure, unspecified; E11.9 Type 2 diabetes mellitus without complications; I48.91 Unspecified atrial fibrillation; E78.5 Hyperlipidemia, unspecified; K21.9 Gastro-esophageal reflux disease without esophagitis; M19.90 Unspecified osteoarthritis, unspecified site; F17.200 Nicotine dependence, unspecified, uncomplicated; N40.0 Benign prostatic hyperplasia without lower urinary tract symptoms; Z79.02 Long term (current) use of antithrombotics/antiplatelets; Z79.01 Long term (current) use of anticoagulants; Z99.81 Dependence on supplemental oxygen; Z95.5 Presence of coronary angioplasty implant and graft; Z79.84 Long term (current) use of oral hypoglycemic drugs

== ENCOUNTER 2018-10-20 11:49 | Inpatient (IN) | payer MEDICARE, BC ==
[2018-10-20] VITALS (15 sets, daily range): BP systolic 97–137; BP diastolic 45–78
[~2018-10-20] VITALS: Ht 167.6 cm; Wt 82.8 kg
[~2018-10-20 11:49] MED LIST changes: +DIGOXIN0.125 MG PO; +ELIQUIS5 MG PO; +FAMOTIDINE20 M1 PO; +METOPROL TAR25 MG PO; +PROAIR HFA108 MCG/AC PO
[2018-10-20 12:31] LABS: HEMATOCRIT 31.3 % (39.0-50.0); HEMOGLOBIN 9.3 g/dl (14.0-18.0); IMMATURE GRANULOCYTES 0.9 % (0.0-5.0); MEAN CELL VOLUME 95.4 fL CALC (80.0-100.0); MEAN CORPUSCULAR HGB 28.4 pG CALC (26.0-32.0); MEAN CORPUSCULAR HGB CONC 29.7 g/L CALC (32.0-36.0); NEUT# 6.07 thou/uL (1.82-7.42); RED BLOOD COUNT 3.28 mill/uL (4.70-6.10)
[2018-10-20 12:47] LABS: ANION GAP 16 (6-22 (CALC)); BUN 23 mg/dL (8-23); BUN/CREATININE RATIO 25 (12-20 (CALC)); CARBON DIOXIDE 34 mmol/l (22-30); CHLORIDE 96 mmol/l (95-108); CREATININE 0.9 mg/dL (0.7-1.3); GFR > 60 ML/MIN (>=60 (CALC)); GFR FOR AFR.AMER. > 60 ML/MIN (>=60 (CALC)); POTASSIUM 4.5 mmol/l (3.5-5.1); SODIUM 141 mmol/l (137-146)
[2018-10-20] MEDS ORDERED: METFORMIN HCL1000 MG PO (13:53)
[2018-10-20] MEDS ORDERED: METOPROLOL SUCC50 MG PO (13:54)
[2018-10-20 13:55] LABS: URINE BILIRUBIN - DIPSTICK NEGATIVE (NEGATIVE); URINE BLOOD DIPSTICK NEGATIVE (NEGATIVE); URINE COLOR YELLOW; URINE GLUCOSE - DIPSTICK 250 mg/dL (NEGATIVE); URINE KETONE NEGATIVE (NEGATIVE); URINE LEUK ESTERASE NEGATIVE (NEGATIVE); URINE NITRITE - DIPSTICK NEGATIVE (Negative); URINE PROTEIN - DIPSTICK NEGATIVE (NEG-TRACE); URINE SPECIFIC GRAVITY 1.015; URINE UROBILINOGEN - DIPSTICK 0.2 E.U./dL (0.2)
[2018-10-20] MEDS ORDERED: ATORVASTATIN CA20 MG PO (13:55)
[2018-10-20] MEDS ORDERED: OMEPRAZOLE20 M2 PO (13:58)
[2018-10-20] MEDS ORDERED: LOSARTAN POTASS50 MG PO ×2 (13:58→19:01)
[2018-10-20] MEDS ORDERED: DILTIAZEM HCL180 MG PO (13:59)
[2018-10-20] MEDS ORDERED: DIGOXIN0.125 MG PO (18:49)
[2018-10-20] MEDS ORDERED: DILT-XR120 MG PO (18:50)
[2018-10-20] MEDS ORDERED: SPIRONOLACT25 MG PO (18:51)
[2018-10-20] MEDS ORDERED: METOPROL TAR25 M1 PO (18:51)
[2018-10-20] MEDS ORDERED: GLIMEPIRIDE2 MG PO (18:52)
[2018-10-20] MEDS ORDERED: TOPROL XL50 MG PO (20:02)
[2018-10-20] MEDS ORDERED: DILTIAZEM120 MG PO (20:03)
[2018-10-21] VITALS (12 sets, daily range): BP systolic 110–137; BP diastolic 42–85
[2018-10-21 04:51] LABS: HEMATOCRIT 32.1 % (39.0-50.0); HEMOGLOBIN 9.5 g/dl (14.0-18.0); MEAN CORPUSCULAR HGB 28.1 pG CALC (26.0-32.0); MEAN CORPUSCULAR HGB CONC 29.6 g/L CALC (32.0-36.0); RED BLOOD COUNT 3.38 mill/uL (4.70-6.10); RED CELL DISTRI WIDTH 14.9 % (11.5-15.5)
[2018-10-21 05:04] LABS: BUN 23 mg/dL (8-23); BUN/CREATININE RATIO 25 (12-20 (CALC)); CHLORIDE 96 mmol/l (95-108); CREATININE 0.9 mg/dL (0.7-1.3); GFR > 60 ML/MIN (>=60 (CALC)); GFR FOR AFR.AMER. > 60 ML/MIN (>=60 (CALC)); POTASSIUM 3.6 mmol/l (3.5-5.1); SODIUM 144 mmol/l (137-146)
[2018-10-21 05:11] LABS: ANION GAP 11 (6-22 (CALC))
[2018-10-21 05:13] LABS: CARBON DIOXIDE 41 mmol/l (22-30)
[2018-10-22] VITALS (10 sets, daily range): BP systolic 104–137; BP diastolic 43–67
[2018-10-22 05:34] LABS: HEMATOCRIT 32.7 % (39.0-50.0); HEMOGLOBIN 9.6 g/dl (14.0-18.0); MEAN CELL VOLUME 95.3 fL CALC (80.0-100.0); MEAN CORPUSCULAR HGB CONC 29.4 g/L CALC (32.0-36.0); RED BLOOD COUNT 3.43 mill/uL (4.70-6.10); RED CELL DISTRI WIDTH 14.7 % (11.5-15.5)
[2018-10-22 05:40] LABS: BUN 21 mg/dL (8-23); BUN/CREATININE RATIO 20 (12-20 (CALC)); CHLORIDE 93 mmol/l (95-108); CREATININE 1.1 mg/dL (0.7-1.3); GFR > 60 ML/MIN (>=60 (CALC)); GFR FOR AFR.AMER. > 60 ML/MIN (>=60 (CALC)); POTASSIUM 3.6 mmol/l (3.5-5.1); SODIUM 142 mmol/l (137-146)
[2018-10-22 05:46] LABS: ANION GAP 8 (6-22 (CALC))
[2018-10-22 05:50] LABS: CARBON DIOXIDE 45 mmol/l (22-30)
[2018-10-23] VITALS (10 sets, daily range): BP systolic 105–126; BP diastolic 47–70
[2018-10-23 05:26] LABS: MEAN CELL VOLUME 92.2 fL CALC (80.0-100.0); MEAN CORPUSCULAR HGB 27.9 pG CALC (26.0-32.0); MEAN CORPUSCULAR HGB CONC 30.3 g/L CALC (32.0-36.0); RED BLOOD COUNT 3.58 mill/uL (4.70-6.10); RED CELL DISTRI WIDTH 14.5 % (11.5-15.5)
[2018-10-23 05:42] LABS: BUN 22 mg/dL (8-23); BUN/CREATININE RATIO 21 (12-20 (CALC)); CHLORIDE 85 mmol/l (95-108); GFR > 60 ML/MIN (>=60 (CALC)); GFR FOR AFR.AMER. > 60 ML/MIN (>=60 (CALC)); MAGNESIUM 1.6 mg/dL (1.6-2.3); POTASSIUM 3.2 mmol/l (3.5-5.1); SODIUM 141 mmol/l (137-146)
[2018-10-23 05:50] LABS: ANION GAP 12 (6-22 (CALC))
[2018-10-23 05:53] LABS: CARBON DIOXIDE 47 mmol/l (22-30)
[2018-10-23] MEDS ORDERED: ALDACTONE25 MG PO (18:10)
[2018-10-23] MEDS ORDERED: DOXYCYCL HYC100 MG PO (18:10)
== END 2018-10-23 19:50 | disposition home or self-care (01) | DRG 291 ==
LOC: ED 11:49 → ED-I 13:08 → ED 13:52 → ICU 13:53
PROVIDERS: Family Medicine; ADMIT Internal Medicine; ATTEND Internal Medicine
PROC: 5A09357 Assistance with Respiratory Ventilation, Less than 24 Consecutive Hours, Continuous Positive Airway Pressure (ICD-10-PCS; principal; 2018-10-20)
PROC: 0T9B70Z Drainage of Bladder with Drainage Device, Via Natural or Artificial Opening (ICD-10-PCS; 2018-10-20)
DX: I11.0 Hypertensive heart disease with heart failure (principal); J96.21 Acute and chronic respiratory failure with hypoxia; J18.9 Pneumonia, unspecified organism; I50.33 Acute on chronic diastolic (congestive) heart failure; J43.9 Emphysema, unspecified; E11.9 Type 2 diabetes mellitus without complications; I48.0 Paroxysmal atrial fibrillation; I25.10 Atherosclerotic heart disease of native coronary artery without angina pectoris; E78.5 Hyperlipidemia, unspecified; N40.0 Benign prostatic hyperplasia without lower urinary tract symptoms; K21.9 Gastro-esophageal reflux disease without esophagitis; M19.90 Unspecified osteoarthritis, unspecified site; F17.200 Nicotine dependence, unspecified, uncomplicated; Z79.02 Long term (current) use of antithrombotics/antiplatelets; Z79.01 Long term (current) use of anticoagulants; Z95.0 Presence of cardiac pacemaker; Z66 Do not resuscitate; Z79.84 Long term (current) use of oral hypoglycemic drugs; Z95.5 Presence of coronary angioplasty implant and graft; Z99.81 Dependence on supplemental oxygen; Z87.01 Personal history of pneumonia (recurrent); Z96.612 Presence of left artificial shoulder joint

== ENCOUNTER 2020-07-07 17:48 | Emergency (ER) | payer MEDICARE, BC ==
[~2020-07-07] VITALS: Ht 167.6 cm; Wt 75.0 kg
[~2020-07-07 17:48] MED LIST changes: +ALDACTONE25 MG PO; +ATORVASTATIN CA20 MG PO; +DILT-XR120 MG PO; +DILTIAZEM HCL180 MG PO; +DILTIAZEM120 MG PO; +LOSARTAN POTASS50 MG PO; +METFORMIN HCL1000 MG PO; +METOPROLOL SUCC50 MG PO; +TOPROL XL50 MG PO
[2020-07-07] MEDS ORDERED: BUMETANIDE1 MG PO (18:15)
[2020-07-07] MEDS ORDERED: GLIPIZIDE ER5 M1 PO (18:16)
[2020-07-07] MEDS ORDERED: LEVOCETIRIZINE D5 MG PO (18:16)
[2020-07-07] MEDS ORDERED: JANUVIA50 MG PO (18:16)
[2020-07-07] MEDS ORDERED: POTASSIUM CHLO10 MEQ PO (18:17)
[2020-07-07] MEDS ORDERED: SYNTHROID25 MCG PO (18:17)
[2020-07-07] MEDS ORDERED: NORVASC5 M1 PO (18:18)
[2020-07-07] MEDS ORDERED: DRIZALMA SPRINK30 MG PO (18:18)
[2020-07-07] MEDS ORDERED: OZEMPIC2 MG/1.5 M IJ (18:19)
[2020-07-07] MEDS ORDERED: WARFARIN2 MG PO (18:20)
[2020-07-07 18:56] LABS: HEMOGLOBIN 9.3 g/dl (14.0-18.0); IMMATURE GRANULOCYTES 1.4 % (0.0-5.0); MEAN CELL VOLUME 91.7 fL CALC (80.0-100.0); MEAN CORPUSCULAR HGB 27.5 pG CALC (26.0-32.0); NEUT# 6.55 thou/uL (1.82-7.42); RED BLOOD COUNT 3.38 mill/uL (4.70-6.10); RED CELL DISTRI WIDTH 14.9 % (11.5-15.5)
[2020-07-07 19:08] LABS: ALBUMIN 3.2 g/dL (3.2-5.0); ALKALINE PHOSPHATASE 65 u/l (38-126); ANION GAP 10 (6-22 (CALC)); BILIRUBIN, TOTAL 0.7 mg/dL (0.0-1.4); BUN 19 mg/dL (8-23); BUN/CREATININE RATIO 15 (12-20 (CALC)); CARBON DIOXIDE 33 mmol/l (22-30); CHLORIDE 94 mmol/l (95-108); CREATININE 1.3 mg/dL (0.7-1.3); GFR 53 ML/MIN (>=60 (CALC)); GFR FOR AFR.AMER. > 60 ML/MIN (>=60 (CALC)); POTASSIUM 3.9 mmol/l (3.5-5.1); SGOT/AST 26 u/l (19-48); SODIUM 134 mmol/l (137-146); TOTAL PROTEIN 6.3 g/dL (6.3-8.2)
[2020-07-07 19:15] LABS: ACT PARTIAL THROMBO TIME 48.6 SECONDS (20.0-32.5)
[2020-07-07 19:20] LABS: INTERNATIONAL NORMALIZED RATIO 5.6 RATIO (0.7-1.3); PROTHROMBIN TIME 55.8 SECONDS (9.0-12.5)
[2020-07-08 00:16] VITALS: BP 133/66
== END 2020-07-08 00:26 | disposition home or self-care (01) ==
LOC: ED 17:48
PROVIDERS: Emergency Medicine
DX: S51.012A Laceration without foreign body of left elbow, initial encounter (principal); S81.012A Laceration without foreign body, left knee, initial encounter; M47.812 Spondylosis without myelopathy or radiculopathy, cervical region; T45.515A Adverse effect of anticoagulants, initial encounter; I11.0 Hypertensive heart disease with heart failure; I50.9 Heart failure, unspecified; E11.9 Type 2 diabetes mellitus without complications; J44.9 Chronic obstructive pulmonary disease, unspecified; E78.00 Pure hypercholesterolemia, unspecified; I48.91 Unspecified atrial fibrillation; K21.9 Gastro-esophageal reflux disease without esophagitis; N40.0 Benign prostatic hyperplasia without lower urinary tract symptoms; W07.XXXA Fall from chair, initial encounter; Y92.009 Unspecified place in unspecified non-institutional (private) residence as the place of occurrence of the external cause; Z79.84 Long term (current) use of oral hypoglycemic drugs; Z92.3 Personal history of irradiation; Z92.21 Personal history of antineoplastic chemotherapy; Z95.5 Presence of coronary angioplasty implant and graft; Z79.01 Long term (current) use of anticoagulants; Z95.0 Presence of cardiac pacemaker; Z85.819 Personal history of malignant neoplasm of unspecified site of lip, oral cavity, and pharynx

== ENCOUNTER 2022-01-24 09:33 | Emergency (ER) | payer MEDICARE, BC ==
[2022-01-24] VITALS (9 sets, daily range): BP systolic 103–144; BP diastolic 56–73
[~2022-01-24] VITALS: Ht 167.6 cm; Wt 83.0 kg
[~2022-01-24 09:33] MED LIST changes: +BUMETANIDE1 MG PO; +DRIZALMA SPRINK30 MG PO; +GLIPIZIDE ER5 M1 PO; +JANUVIA50 MG PO; +LEVOCETIRIZINE D5 MG PO; +NORVASC5 M1 PO; +OZEMPIC2 MG/1.5 M IJ; +POTASSIUM CHLO10 MEQ PO; +SYNTHROID25 MCG PO; +WARFARIN2 MG PO
[2022-01-24 10:22] LABS: HEMATOCRIT 34.1 % (39.0-50.0); HEMOGLOBIN 10.9 g/dl (14.0-18.0); IMMATURE GRANULOCYTES 0.3 % (0.0-5.0); MEAN CORPUSCULAR HGB 31.3 pG CALC (26.0-32.0); NEUT# 7.24 thou/uL (1.82-7.42); RED BLOOD COUNT 3.48 mill/uL (4.70-6.10)
[2022-01-24 10:24] LABS: URINE BILIRUBIN - DIPSTICK NEGATIVE (NEGATIVE); URINE BLOOD DIPSTICK LARGE (NEGATIVE); URINE COLOR YELLOW; URINE GLUCOSE - DIPSTICK NEGATIVE (NEGATIVE); URINE KETONE NEGATIVE (NEGATIVE); URINE PH 7.5 (4.5-8.0); URINE PROTEIN - DIPSTICK 100 mg/dL (NEG-TRACE)
[2022-01-24 10:27] LABS: URINE NITRITE - DIPSTICK NEGATIVE (Negative)
[2022-01-24 10:28] LABS: URINE LEUK ESTERASE MODERATE (NEGATIVE)
[2022-01-24 10:32] LABS: ALBUMIN 3.8 g/dL (3.2-5.0); BILIRUBIN, TOTAL 0.5 mg/dL (0.0-1.4); CREATININE 1.4 mg/dL (0.7-1.3); POTASSIUM 4.3 mmol/l (3.5-5.1); TOTAL PROTEIN 7.1 g/dL (6.3-8.2)
[2022-01-24 10:38] LABS: URINE BACTERIA MODERATE hpf; URINE WBC 50-100 WBC/hpf (0-5)
[2022-01-24 10:40] LABS: INTERNATIONAL NORMALIZED RATIO 2.4 RATIO (0.7-1.3); PROTHROMBIN TIME 23.3 SECONDS (9.0-12.5)
[2022-01-24] MEDS ORDERED: KEFLEX500 MG PO (13:18)
== END 2022-01-24 14:01 | disposition home or self-care (01) ==
LOC: ED 09:33
PROVIDERS: Emergency Medicine
DX: N39.0 Urinary tract infection, site not specified (principal); R31.9 Hematuria, unspecified; I11.0 Hypertensive heart disease with heart failure; I50.9 Heart failure, unspecified; I48.91 Unspecified atrial fibrillation; E11.9 Type 2 diabetes mellitus without complications; E78.00 Pure hypercholesterolemia, unspecified; N40.0 Benign prostatic hyperplasia without lower urinary tract symptoms; B96.20 Unspecified Escherichia coli [E. coli] as the cause of diseases classified elsewhere; Z79.01 Long term (current) use of anticoagulants; Z95.5 Presence of coronary angioplasty implant and graft; Z95.0 Presence of cardiac pacemaker; Z85.819 Personal history of malignant neoplasm of unspecified site of lip, oral cavity, and pharynx; Z92.3 Personal history of irradiation; Z92.21 Personal history of antineoplastic chemotherapy; Z79.84 Long term (current) use of oral hypoglycemic drugs

== ENCOUNTER 2022-01-29 19:20 | Inpatient (IN) | payer MEDICARE, BC ==
[2022-01-29] VITALS (12 sets, daily range): BP systolic 115–157; BP diastolic 56–76
[~2022-01-29] VITALS: Ht 167.6 cm; Wt 83.0 kg
[~2022-01-29 19:20] MED LIST changes: +KEFLEX500 MG PO
--- NOTE | 2022-01-29 19:22 | NUR ---
PT ASSISTED FROM CAR TO ROOM 10 VIA W/C
--- NOTE | 2022-01-29 19:55 | NUR ---
PT REFUSED TO BE PLACED IN PT GOWN. RR 28 -32, ABDOMINAL MUSCLE USE NOTED. UMBILICAL HERNIA NOTED. AT BEDSIDE
--- NOTE | 2022-01-29 20:10 | NUR ---
AWAITING MEDICATION FROM HOME THEATER INSTALLER.
[2022-01-29 20:11] LABS: HEMATOCRIT 36.2 % (39.0-50.0); HEMOGLOBIN 11.5 g/dl (14.0-18.0); IMMATURE GRANULOCYTES 0.9 % (0.0-5.0); MEAN CELL VOLUME 98.1 fL CALC (80.0-100.0); MEAN CORPUSCULAR HGB 31.2 pG CALC (26.0-32.0); MEAN CORPUSCULAR HGB CONC 31.8 g/dL CAL (32.0-36.0); NEUT# 8.01 thou/uL (1.82-7.42); RED BLOOD COUNT 3.69 mill/uL (4.70-6.10); RED CELL DISTRI WIDTH 13.1 % (11.5-15.5)
[2022-01-29 20:26] LABS: ALKALINE PHOSPHATASE 89 u/l (38-126); ANION GAP 13 (6-22 (CALC)); BILIRUBIN, TOTAL 0.7 mg/dL (0.0-1.4); BUN 28 mg/dL (8-23); BUN/CREATININE RATIO 19 (12-20 (CALC)); CARBON DIOXIDE 31 mmol/l (22-30); CHLORIDE 102 mmol/l (95-108); CREATININE 1.5 mg/dL (0.7-1.3); GFR FOR AFR.AMER. 54 ML/MIN (>=60 (CALC)); GFR OTHER RACES 45 ML/MIN (>=60 (CALC)); POTASSIUM 4.3 mmol/l (3.5-5.1); SGOT/AST 28 u/l (19-48); SODIUM 142 mmol/l (137-146); TOTAL PROTEIN 7.7 g/dL (6.3-8.2)
[2022-01-29 20:29] LABS: INTERNATIONAL NORMALIZED RATIO 1.9 RATIO (0.7-1.3); PROTHROMBIN TIME 18.7 SECONDS (9.0-12.5)
--- NOTE | 2022-01-29 21:56 | NUR ---
PT VOIDED 450 ML
[2022-01-29 23:12] LABS: URINE BILIRUBIN - DIPSTICK NEGATIVE (NEGATIVE); URINE BLOOD DIPSTICK SMALL (NEGATIVE); URINE COLOR YELLOW; URINE GLUCOSE - DIPSTICK 250 mg/dL (NEGATIVE); URINE KETONE NEGATIVE (NEGATIVE); URINE LEUK ESTERASE NEGATIVE (NEGATIVE); URINE PROTEIN - DIPSTICK 100 mg/dL (NEG-TRACE); URINE SPECIFIC GRAVITY >=1.030; URINE UROBILINOGEN - DIPSTICK 0.2 E.U./dL (0.2)
[2022-01-29 23:14] LABS: URINE NITRITE - DIPSTICK NEGATIVE (Negative)
--- NOTE | 2022-01-29 23:18 | NUR ---
REPORT GIVEN TO MARTA HILTON. PT BEING TRANSPORTED TO FLOOR BY JIM CORDEROSTERILE PRODUCTS PROCESSOR AND RT.
[2022-01-29 23:19] LABS: URINE SQUAMOUS EPITHELIAL CELL FEW EPI/hpf (0-FEW); URINE WBC 0-2 WBC/hpf (0-5)
[2022-01-30] VITALS (20 sets, daily range): BP systolic 111–142; BP diastolic 55–82
--- NOTE | 2022-01-30 | NUR ---
PT SLEEPING WITH BIPAP WITH NO S/S OF DISTRESS, VSS
--- NOTE | 2022-01-30 04:00 | NUR ---
PT SLEEPING WITH NO S/S OF DISTRESS, VSS
--- NOTE | 2022-01-30 06:53 | NUR ---
PATIENT TAKEN OFF BIPAP AND PLACED ON 2L N/C. VITAL SINGS STABLE AND STATES BEING COMFORTABLE. WILL CONTINUE TO MONITOR.
--- NOTE | 2022-01-30 07:00 | NUR ---
REPORT RECEIVED FROM ADOBE DEVELOPER - PT UP TO CHAIR ON 3L NC SATTING 98% - VSS - PT DENIES ANY PAIN - NO S/S DISTRESS - CALL LIGHT AND PERSONAL BELONGINGS IN REACH
--- NOTE | 2022-01-30 09:13 | NUR ---
Transferring patient to med surg per MD order - pt going to room 267 via his bed with his personal belongins - pt in stable condition and agrees to move
--- NOTE | 2022-01-30 09:45 | NUR ---
PT HAS BEEN TRANSPORTED TO FROM ICU, TO MS 267 VIA BED, PT IS A&OX3, PT FOLLOWS COMMANDS AND IS ABLE TO MAKE HIS NEEDS KNOWN. PT HAS NO C/O AT THIS TIME AND IS ON 2LNC. PT HAS CALL LIGHT NEAR. VS ASSESSED, NAD. WILL CONTINUE TO MONITOR.
--- NOTE | 2022-01-30 13:00 | NUR ---
PT HAS BEEN RESTING COMFORTABLY, PT HAS NO COMPLAINTS, PT IS REQUESTING ASSISTANCE TO STAND TO VOID, PT HAS STEADY GAIT, PT HAS CALL LIGHT NEAR AND HAS DEMONSTRATED WELL OF USE. WILL CONTINUE TO MONITOR.
--- NOTE | 2022-01-30 19:19 | NUR ---
RECIEVED REPORT ON PT. PT IN BED SLEEPING. EASILY AROUSED. ALERT AND ORIENTATED X4. BREATHING IS EVEN AND NON-LABORED, NO SIGNS OF DISTRESS. DENIES PAIN OR DISCOMFRT. IV SITE FLUSHED. DENIES ANY PAIN OR DISCOMFORT. ALL SAFETY PRECAUTIONS IN PLACE AT THIS TIME
[2022-01-31] VITALS: BP 125/58
[2022-01-31 00:05] VITALS: BP 125/58
--- NOTE | 2022-01-31 00:10 | NUR ---
PT IN BED SLEEPING, TELE IN PLACE. IV SITE PATENT. BREATHING EVEN AND NON LABORED. ALL SAFETY PRECAUTIONS IN PLACE AT THIS TIME
[2022-01-31 04:00] VITALS: BP 125/64
--- NOTE | 2022-01-31 04:00 | NUR ---
PT SLEEPING IN BED. TELE IN PLACE. BREATHING APPEARS EVEN AND NON LABORED. DENIES ANY NEEDS AT THIS TIME. ALL SAFETY PRECAUTIONS IN PLACE AT THIS TIME
[2022-01-31 04:40] VITALS: BP 125/64
[2022-01-31 05:17] LABS: HEMATOCRIT 34.4 % (39.0-50.0); HEMOGLOBIN 11.3 g/dl (14.0-18.0); MEAN CELL VOLUME 94.5 fL CALC (80.0-100.0); MEAN CORPUSCULAR HGB CONC 32.8 g/dL CAL (32.0-36.0); RED BLOOD COUNT 3.64 mill/uL (4.70-6.10); RED CELL DISTRI WIDTH 12.8 % (11.5-15.5)
[2022-01-31 05:32] LABS: CREATININE 1.6 mg/dL (0.7-1.3)
[2022-01-31 05:39] LABS: POTASSIUM 3.4 mmol/l (3.5-5.1)
[2022-01-31 06:30] LABS: PROTHROMBIN TIME 28.4 SECONDS (9.0-12.5)
[2022-01-31 07:42] VITALS: BP 135/77
--- NOTE | 2022-01-31 07:46 | NUR ---
PT RESTING IN SEMI FOWLERS POSITION. ASSESSMENT AND VS COMPLETED. HEART RHYTHM ON TELE. RESPIRAITONS ON 2L NC. PT IV SITE NOTED TO LEFT HAND PT DENIES ADDITIONAL NEEDS AT THE TIME ALL SAFETY PRECAUTIONS IN PLACE CALL LIGHT INREACH.
[2022-01-31 08:16] VITALS: BP 135/77
--- NOTE | 2022-01-31 09:05 | NUR ---
O2 SAT ON 1.5L NC IS 97%.
--- NOTE | 2022-01-31 10:47 | NUR ---
Discharge instructions given. Patient verbalizes understanding of same. Discharged in stable condition via Wheelchair to Home with staff. All belongings sent with pt. IV REMOVED TELE REMOVED.
== END 2022-01-31 10:47 | disposition home or self-care (01) | DRG 291 ==
LOC: ED 19:20 → ICU 21:42 → MS2 01-30 10:05
PROVIDERS: Family Medicine; ADMIT Internal Medicine; ATTEND Internal Medicine
PROC: 5A09357 Assistance with Respiratory Ventilation, Less than 24 Consecutive Hours, Continuous Positive Airway Pressure (ICD-10-PCS; principal; 2022-01-29)
DX: I11.0 Hypertensive heart disease with heart failure (principal); J96.21 Acute and chronic respiratory failure with hypoxia; J96.22 Acute and chronic respiratory failure with hypercapnia; I48.20 Chronic atrial fibrillation, unspecified; I50.9 Heart failure, unspecified; J43.9 Emphysema, unspecified; E11.9 Type 2 diabetes mellitus without complications; E78.00 Pure hypercholesterolemia, unspecified; N40.0 Benign prostatic hyperplasia without lower urinary tract symptoms; F17.200 Nicotine dependence, unspecified, uncomplicated; T50.1X6A Underdosing of loop [high-ceiling] diuretics, initial encounter; Z91.128 Patient's intentional underdosing of medication regimen for other reason; Z95.5 Presence of coronary angioplasty implant and graft; Z95.0 Presence of cardiac pacemaker; Z85.819 Personal history of malignant neoplasm of unspecified site of lip, oral cavity, and pharynx; Z92.3 Personal history of irradiation; Z92.21 Personal history of antineoplastic chemotherapy; Z99.81 Dependence on supplemental oxygen; Z79.01 Long term (current) use of anticoagulants; Z87.440 Personal history of urinary (tract) infections; Z20.822 Contact with and (suspected) exposure to COVID-19